=== PATIENT | male | born 1950 | race Two or more races ===

== ENCOUNTER 2017-11-30 16:43 | Emergency (ER) | payer MEDICARE, OTHER ==
[~2017-11-30] VITALS: Ht 177.8 cm; Wt 106.6 kg
[2017-11-30 18:09] LABS: Basophils # (auto) 0 uL; Basophils % (auto) 0.7 % (0.0-2.0); Eosinophils # (auto) 0 uL; Eosinophils % (auto) 0.1 % (0.0-7.0); Hematocrit 42.4 % (41.0-53.0); Hemoglobin 14.2 g/dL (13.5-17.5); Lymphocytes # (auto) 0.9 uL; Lymphocytes % (auto) 22.4 % (10.0-50.0); Mean Corpuscular Hemoglobin 30.9 pg (28.0-32.0); Mean Corpuscular Hgb Conc. 33.6 g/dL (32.0-36.0); Monocytes # (auto) 0.7 uL; Monocytes % (auto) 15.6 % (0.0-12.0); Neutrophils # (auto) 2.6 uL; Neutrophils % (auto) 61.2 % (37.0-80.0); Nucleated Red Blood Cells % 0.2 %; Platelet Count (auto) 149 10^3/uL (140-450); Red Cell Distribution Width 13.1 % (11.8-14.3); White Blood Cell 4.2 10^3/uL (4.4-10.8)
[2017-11-30 18:25] LABS: Albumin 2.9 g/dL (3.4-5.0); BUN/Creatinine Ratio 13.3; Bilirubin, Total 1.4 mg/dL (0.2-1.0); Calcium 8.2 mg/dL (8.5-10.1); Potassium 4.4 mmol/L (3.5-5.1); Total Protein 6.8 g/dL (6.4-8.2)
[2017-11-30 18:26] LABS: Urine Bacteria NONE SEEN /hpf (None Seen); Urine Blood 1+ /uL (Negative); Urine Specific Gravity 1.026 (1.001-1.035); Urine WBC <1 /hpf (0 - 3)
[2017-11-30] MEDS ORDERED: InsuLIN REG 1unit/0.01ml Soln (100units/ml) IV ONE (18:45)
[2017-11-30] MEDS ORDERED: SODIUM CHLORIDE 0.9% 1,000 ML IV ONE (19:30)
[2017-11-30 21:47] VITALS: BP 118/67
== END 2017-11-30 23:55 | disposition home or self-care (01) ==
LOC: ER 16:46
DX: E11.65 Type 2 diabetes mellitus with hyperglycemia (principal); R42 Dizziness and giddiness; Z79.4 Long term (current) use of insulin
CPT/HCPCS: 36415; 36600; 80053; 81001; 82010; 82805; 82962; 85025; 93005; 96361; 96374; 99285; J1815; J7030

== ENCOUNTER 2017-12-05 19:02 | Observation (INO) | payer MEDICARE ==
[~2017-12-05] VITALS: Ht 177.8 cm; Wt 106.6 kg
[2017-12-05] MEDS ORDERED: SODIUM CHLORIDE 0.9% 1,000 ML IV ONE (19:37)
[2017-12-05] MEDS ORDERED: InsuLIN REG 1unit/0.01ml Soln (100units/ml) IV ONE (19:45)
[2017-12-05 20:00] LABS: Basophils # (auto) 0 uL; Basophils % (auto) 0.9 % (0.0-2.0); Eosinophils # (auto) 0.1 uL; Eosinophils % (auto) 2.6 % (0.0-7.0); Hematocrit 43.2 % (41.0-53.0); Hemoglobin 14.6 g/dL (13.5-17.5); Lymphocytes # (auto) 1.6 uL; Lymphocytes % (auto) 46.3 % (10.0-50.0); Mean Corpuscular Hemoglobin 30.9 pg (28.0-32.0); Mean Corpuscular Hgb Conc. 33.8 g/dL (32.0-36.0); Mean Corpuscular Volume 91.6 fL (80.0-100.0); Monocytes # (auto) 0.5 uL; Monocytes % (auto) 13.6 % (0.0-12.0); Neutrophils # (auto) 1.3 uL; Neutrophils % (auto) 36.6 % (37.0-80.0); Nucleated Red Blood Cells % 0.2 %; Platelet Count (auto) 164 10^3/uL (140-450); Red Blood Cells 4.72 10^6/uL (4.5-5.90); Red Cell Distribution Width 12.5 % (11.8-14.3); White Blood Cell 3.6 10^3/uL (4.4-10.8)
[2017-12-05 20:15] LABS: Albumin 2.9 g/dL (3.4-5.0); Calcium 8.4 mg/dL (8.5-10.1); Magnesium 1.9 mg/dL (1.6-2.6); Potassium 4.5 mmol/L (3.5-5.1)
[2017-12-05 20:17] LABS: Total Protein 7.5 g/dL (6.4-8.2)
[2017-12-05 20:25] LABS: Bilirubin, Total 0.5 mg/dL (0.2-1.0)
[2017-12-05] MEDS ORDERED: SODIUM CHLORIDE 0.9% 1,000 ML IVB ONE (21:25)
[2017-12-05 22:06] LABS: Amylase 42 U/L (25-115); Lipase 287 U/L (73-393)
[2017-12-05] MEDS ORDERED: cloNIDine HCL 0.1 MG TAB ONE (22:49)
[2017-12-05] MEDS ORDERED: cloNIDine HCL 0.1 MG TAB PO ONE (23:00)
[2017-12-06 00:15] LABS: INR 0.92 (0.9-1.15); Partial Thromboplastin Time 29.9 sec (22.64-33.71)
[2017-12-06] MEDS ORDERED: cloNIDine HCL 0.1 MG TAB PO ONE (00:15)
[2017-12-06 02:21] VITALS: BP 166/78
== END 2017-12-06 03:47 | disposition home or self-care (01) | DRG 639 ==
LOC: ER 19:02 → OVERFLOW 21:26 → ER 12-06 03:47
PROVIDERS: ADMIT Family Medicine; ATTEND Family Medicine
DX: E11.65 Type 2 diabetes mellitus with hyperglycemia (principal)
CPT/HCPCS: 36415; 71045; 80053; 82010; 82150; 82962; 83690; 83735; 84484; 85025; 85610; 85730; 96360; 96361; 99285; G0378; J1815